=== PATIENT | female | born 1980 | race Two or more races ===

== ENCOUNTER 2019-12-30 20:57 | Emergency (ER) | payer OTHER ==
[~2019-12-30] VITALS: Ht 165.1 cm; Wt 74.5 kg
[2019-12-30 21:04] VITALS: Ht 165.1 cm; Wt 74.5 kg
[2019-12-30 21:48] LABS: BASOPHIL % 0.4 % (0-2); PLATELET COUNT 237 x10^3mcL (130-400); RED CELL DISTRIBUTION WIDTH 12.9 % (11.5-14.5)
[2019-12-30 21:57] LABS: CALCIUM 9.3 mg/dL (8.5-10.1); CARBON DIOXIDE 24.5 mmol/L (21-32); CHLORIDE SERUM 103 mmol/L (98-107); CREATININE SERUM 0.8 mg/dL (0.6-1.0); GFR1 > 60 mL/min; GLUCOSE SERUM 87 mg/dL (74-106); POTASSIUM SERUM 3.7 mmol/L (3.5-5.1); SODIUM SERUM 140 mmol/L (136-145)
[2019-12-30 22:02] LABS: ALBUMIN 3.8 g/dL (3.4-5.0); ALKALINE PHOSPHATASE 48 U/L (46-116); ALT/SGPT 20 U/L (14-59); AST/SGOT 15 U/L (15-37); BILIRUBIN TOTAL 0.7 mg/dL (0.20-1.00); LIPASE 71 IU/L (73-393); TOTAL PROTEIN, SERUM 7.8 g/dL (6.4-8.2)
[2019-12-30 23:28] LABS: microscopic required? NO
[2019-12-30 23:40] LABS: UA SPECIFIC GRAVITY >=1.030 (1.005-1.035); urine erythrocyte NEGATIVE (NEGATIVE)
[2019-12-31 00:25] VITALS: BP 122/78
== END 2019-12-31 00:25 | disposition home or self-care (01) ==
LOC: ED 20:57
PROVIDERS: Emergency Medicine
DX: T83.32XA Displacement of intrauterine contraceptive device, initial encounter (principal); R10.2 Pelvic and perineal pain
CPT/HCPCS: J0696; J1885; J2405; J7030; J7060